=== PATIENT | female | born 1980 ===

== ENCOUNTER 2018-07-08 14:23 | Emergency (ER) | payer MEDICAID ==
[2018-07-08] MEDS ORDERED: Sodium Chloride 0.9% 1,000 ML IV ONE (14:49)
[2018-07-08] MEDS ORDERED: Iohexol 240 (50 ml) PO STA (14:49)
--- NOTE | 2018-07-08 15:13 | C.PDOC ---
History Of Present Illness 37-year-old female with PMH of gall stones s/p cholecystectomy in May 2018 at [facility], presents to the ED complaining of persistent right upper quadrant pain since the surgery. Patient also reports having loose, non-bloody bowel movements. She denies any associated nausea, vomiting, fever, or chills. Patient also reports a history of chronic back/neck pain for which she has been seeing Dr. Joseph and taking oxycodone 10mg. Upon attending physical therapy today patient was told that Dr. Joseph will not give her further pain medications until she resolves her GI issues. Patient presents to the ED with prescriptions for outpatient blood work and CT A/P requested by her surgeon, Schuyler Ye MD. Her last dose of pain medication was 2 days ago. Time Seen by Provider: 07/08/18 14:40 Chief Complaint (Nursing): Abdominal Pain History Per: Patient History/Exam Limitations: no limitations Onset/Duration Of Symptoms: Days Current Symptoms Are (Timing): Still Present Location Of Pain/Discomfort: RUQ Quality Of Discomfort: "Pain" Past Medical History Reviewed: Historical Data, Nursing Documentation, Vital Signs Vital Signs: Last Vital Signs Temp 98.0 F 07/08/18 17:48 Pulse 68 07/08/18 17:48 Resp 16 07/08/18 17:48 BP 142/90 07/08/18 17:48 Pulse Ox 100 07/08/18 17:48 - Medical History PMH: Back Problems, Gall Bladder Disease, Hypercholesterolemia Surgical History: Cholecystectomy, (x4) Family History: States: No Known Family Hx - Social History Hx Alcohol Use: No Hx Substance Use: No - Immunization History Hx Tetanus Toxoid Vaccination: (unk) Hx Influenza Vaccination: No Hx Pneumococcal Vaccination: No Review Of Systems Except As Marked, All Systems Reviewed And Found Negative. Constitutional: Negative for: Fever, Chills Cardiovascular: Negative for: Chest Pain Respiratory: Negative for: Shortness of Breath Gastrointestinal: Positive for: Abdominal Pain, Diarrhea. Negative for: Nausea , Vomiting, Constipation, Hematochezia Genitourinary: Negative for: Dysuria, Frequency Musculoskeletal: Positive for: Neck Pain (chronic), Back Pain (chronic) Physical Exam - Physical Exam Appears: Non-toxic, No Acute Distress Skin: Warm, Dry, No Rash Head: Atraumatic, Normacephalic Eye(s): bilateral: Normal Inspection, PERRL, EOMI Oral Mucosa: Moist Neck: Normal ROM, Supple Chest: Symmetrical Cardiovascular: Rhythm Regular, No Murmur Respiratory: Normal Breath Sounds, No Rales, No Rhonchi, No Wheezing Gastrointestinal/Abdominal: Bowel Sounds (normal), Soft, Tenderness (RUQ tenderness, mild epigastric tenderness), No Mass, No Distention, No Guarding, No Rebound, No Hernia Extremity: Bilateral: Atraumatic, Normal Color And Temperature, Normal ROM Pulses: Left Dorsalis Pedis: Normal, Right Dorsalis Pedis: Normal Neurological/Psych: Oriented x3, Normal Speech, Normal Cranial Nerves Gait: Steady ED Course And Treatment - Laboratory Results Result Diagrams: 07/08/18 15:18 07/08/18 15:18 Lab Interpretation: No Acute Changes O2 Sat by Pulse Oximetry: 99 (RA) Pulse Ox Interpretation: Normal - CT Scan/US CT Abd/Pelvis Other Rad Studies (CT/US): Read By Radiologist, Radiology Report Reviewed CT/US Interpretation: Accession No. : [id number]. Patient Name / ID : ADRIAN ENNIS / [id number]. Exam Date : 07/08/2018 16:34:44 ( Approved ). Study Comment : Sex / Age : F / 37Y. Creator : Kelly Gonzalez. Dictator : Magdi Yates MD. Impregnator And Drier : Mail Processing Equipment Mechanic : Magdi Yates MD. Approver2 : Report Date : 07/08/2018 16:42:01. My Comment : . This report is currently processing and HAS NOT BEEN OFFICIALLY SIGNED BY THE PHYSICIAN - ESTIMATED TIME OF APPROVAL IS 07/08/2018 17:27. Date of service: 07/08/2018. PROCEDURE: CT Abdomen and Pelvis with contrast. HISTORY: Upper abdominal/right upper quadrant pain. Negative test (concurrent with this examination). COMPARISON: None. TECHNIQUE: Oral contrast only. Radiation dose: Total exam DLP = 1075.32 mGy-cm. This CT exam was performed using one or more of the following dose reduction techniques: Automated exposure control, adjustment of the mA and/or kV according to patient size, and/ or use of iterative reconstruction technique. FINDINGS: LOWER THORAX: Unremarkable. LIVER: Unremarkable. No gross lesion or ductal dilatation. GALLBLADDER AND BILE DUCTS: Status post cholecystectomy. No abnormality is seen in the gallbladder fossa. PANCREAS: Unremarkable. No gross lesion or ductal dilatation. SPLEEN: Unremarkable. ADRENALS: Unremarkable. No mass. KIDNEYS AND URETERS: Unremarkable. No hydronephrosis. No solid mass. VASCULATURE: Unremarkable. No aortic aneurysm. BOWEL: Constipation without fecal impaction or obstruction. Diverticulosis without an acute inflammatory component or other associated pathologic process. APPENDIX: Normal appendix. PERITONEUM: Unremarkable. No free fluid. No free air. LYMPH NODES: Unremarkable. No enlarged lymph nodes. BLADDER: Unremarkable. REPRODUCTIVE: Unremarkable. BONES: No acute fracture. OTHER FINDINGS: None. IMPRESSION: No acute findings related to/accounting for the clinical presentation. Additional benign and/or incidental findings described above. Medical Decision Making Medical Decision Making: Impression: RUQ pain s/p cholecystectomy, Chronic pain Initial Plan: --CMP --Lipase --CBC --Urine HCG --Urinalysis --IV fluids --Morphine 8 mg IVP --Pepcid 20 mg IVP --CT Abd/Pelvis with PO contrast Progress/Updates: All labs reviewed with no acute findings. CT of abdomen shows findings post- surgical and constipation otherwise no acute infectious process or surgical problem. On re-evaluation, the patient is resting comfortably in no acute distress. Discussed results with patient, and copy of lab and CT report was provided. Patient reports improvement of symptoms with Morphine. Patient is asking for pain meds for home, I explain the pain protocol in the ED, and cannot refill any narcotic medications. She will need to follow up with pain management Dr Joseph. The patient understands and will follow up. Patient has no fever and has stable vital signs for discharge. Instructed to return to ER if symptoms worsen or new symptoms arise. Disposition Counseled Patient/Family Regarding: Diagnosis, Need For Followup - Disposition Referrals: Mckenzie Joseph MD [Non-Staff] - Disposition: HOME/ ROUTINE Disposition Time: 17:30 Condition: GOOD Additional Instructions: Please follow up with your primary physician and surgeon for further evaluation of your abdominal problem. Follow up with pain management for further evaluation of your symptoms Instructions: Acute Abdomen (Belly Pain), Adult (DC) Forms: [employer] (Yakut) - POA Present On Arrival: None - Clinical Impression Clinical Impression: RUQ abdominal pain, Chronic pain - PA / [employer] SUPERINTENDENT / Resident Statement MD/DO has reviewed & agrees with the documentation as recorded. - Scribe Statement The provider has reviewed the documentation as recorded by the Scribe (Candy Yo) All medical record entries made by the Scribe were at my direction and personally dictated by me. I have reviewed the chart and agree that the record accurately reflects my personal performance of the history, physical exam, medical decision making, and the department course for this patient. I have also personally directed, reviewed, and agree with the discharge instructions and disposition.
[2018-07-08 15:21] LABS: BASO # 0.1 K/uL (0.0-0.2); EOS # 0.3 K/uL (0.0-0.7); EOS % 5.3 % (0.0-4.0); HEMOGLOBIN 11.5 g/dL (11.0-16.0); LYMPH # 1.5 K/uL (1.0-4.3); LYMPH % 25.2 % (20.0-40.0); MEAN CELL VOLUME 91.1 fL (81.0-99.0); MEAN CORPUSCULAR HEMOGLOBIN 31.1 pg (27.0-31.0); MEAN CORPUSCULAR HGB CONC 34.2 g/dL (33.0-37.0); MEAN PLATELET VOLUME 9.9 fL (7.2-11.7); MONO # 0.4 K/uL (0.0-0.8); MONO % 5.9 % (0.0-10.0); NEUT # 3.8 K/uL (1.8-7.0); NEUT % 62.6 % (50.0-75.0); RBC 3.7 Mil/uL (3.80-5.20); RED CELL DISTRIBUTION WIDTH 14.7 % (11.5-14.5); WHITE BLOOD COUNT 6.1 K/uL (4.8-10.8)
[2018-07-08 15:25] LABS: HCG,QUALITATIVE URINE NEGATIVE (NEGATIVE)
[2018-07-08 15:27] LABS: SQUAMOUS EPITHIAL 3 /hpf (0-5); URINE BILIRUBIN NEGATIVE (NEGATIVE); URINE BLOOD 1+ (NEGATIVE); URINE CLARITY Clear (Clear); URINE COLOR Yellow (YELLOW); URINE GLUCOSE (UA) NORMAL (Normal); URINE LEUKOCYTE ESTERASE NEG Leu/uL (Negative); URINE PROTEIN NEGATIVE (NEGATIVE); URINE UROBILINOGEN NORMAL mg/dL (0.2-1.0)
[2018-07-08] MEDS ORDERED: Morphine 4 MG/ML VIAL ONE (15:30)
[2018-07-08] MEDS ORDERED: Sodium Chloride 0.9% 1,000 ML ONE (15:31)
[2018-07-08] MEDS ORDERED: Iohexol 240 (50 ml) ONE (15:31)
[2018-07-08 15:37] LABS: ALB/GLOB RATIO 1.4 (1.0-2.1); ALBUMIN 4.4 g/dL (3.5-5.0); ALT/SGPT 26 U/L (9-52); AST/SGOT 15 U/L (14-36); BLOOD UREA NITROGEN 9 mg/dL (7-17); GFR AFRICAN-AMERICAN > 60; GFR NON-AFRICAN AMERICAN > 60; LIPASE 49 U/L (23-300)
--- NOTE | 2018-07-08 17:23 | CT ---
Date of service: 07/08/2018 PROCEDURE: CT Abdomen and Pelvis with contrast HISTORY: Upper abdominal/right upper quadrant pain. Negative test (concurrent with this examination). COMPARISON: None. TECHNIQUE: Oral contrast only. Radiation dose: Total exam DLP = 1075.32 mGy-cm. This CT exam was performed using one or more of the following dose reduction techniques: Automated exposure control, adjustment of the mA and/or kV according to patient size, and/or use of iterative reconstruction technique. FINDINGS: LOWER THORAX: Unremarkable. LIVER: Unremarkable. No gross lesion or ductal dilatation. GALLBLADDER AND BILE DUCTS: Status post cholecystectomy. No abnormality is seen in the gallbladder fossa. PANCREAS: Unremarkable. No gross lesion or ductal dilatation. SPLEEN: Unremarkable. ADRENALS: Unremarkable. No mass. KIDNEYS AND URETERS: Unremarkable. No hydronephrosis. No solid mass. VASCULATURE: Unremarkable. No aortic aneurysm. BOWEL: Constipation without fecal impaction or obstruction. Diverticulosis without an acute inflammatory component or other associated pathologic process. APPENDIX: Normal appendix. PERITONEUM: Unremarkable. No free fluid. No free air. LYMPH NODES: Unremarkable. No enlarged lymph nodes. BLADDER: Unremarkable. REPRODUCTIVE: Unremarkable. BONES: No acute fracture. OTHER FINDINGS: None. IMPRESSION: No acute findings related to/accounting for the clinical presentation. Additional benign and/or incidental findings described above.
[2018-07-08 17:49] VITALS: BP 142/90; PULSE 68; RESP 16; TEMP 98
[2018-07-08 17:59] VITALS: O2SAT 99
== END 2018-07-08 17:48 | disposition home or self-care (01) ==
LOC: C.ER 14:23
DX: R10.11 Right upper quadrant pain (principal); G89.29 Other chronic pain; M54.9 Dorsalgia, unspecified; M54.2 Cervicalgia
CPT/HCPCS: 74176; 80053; 81001; 83690; 84703; 85025; 96361; 96374; 96375; 99284; J2270; J7030; Q9966